=== PATIENT | female | born 1995 | race Caucasian/White ===

== ENCOUNTER 2022-01-12 04:31 | Inpatient (IN) ==
[2022-01-12] MEDS ORDERED: Famotidine 20 MG/2 ML VIAL IVP PRN (05:11)
[2022-01-12] MEDS ORDERED: Metoclopramide 10 MG/2 ML VIAL IVP PRN (05:11)
[2022-01-12] MEDS ORDERED: Naloxone 0.4 MG/ML INJ IVP PRN (05:11)
[2022-01-12] MEDS ORDERED: miSOPROStoL 25 MCG TABLET PO PRN (05:33)
[2022-01-12 05:46] LABS: Basophils # 0.1 K/mcL (0.0-0.2); Basophils % 0.5 %; Eosinophils # 0.1 K/mcL (0.0-0.6); Eosinophils % 1.4 %; Hematocrit 33.6 % (35.3-44.9); Immature Granulocytes % 0.5 % (0-4); Lymphocytes # 0.9 K/mcL (0.6-4.6); Lymphocytes % 8.9 %; Mean Corpuscular HGB Conc 32.7 g/dL (31.6-35.5); Mean Corpuscular Hemoglobin 27.6 pg (28.0-33.3); Mean Corpuscular Volume 84.2 fL (83.0-100.0); Mean Platelet Volume 10.7 fL (9.4-12.4); Monocytes # 0.9 K/mcL (0.0-1.3); Monocytes % 9.6 %; Neutrophils # 7.7 K/mcL (1.6-8.9); Platelet Count 297 K/mcL (140-400); Red Blood Count 3.99 M/mcL (3.82-4.97); Red Cell Distribution Width 13.6 % (11.5-14.5); Segmented Neutrophils % 79.1 %; White Blood Count 9.7 K/mcL (4.3-11.1)
[2022-01-12 05:55] LABS: Amphetamine Screen,Urine Negative ng/mL (Cutoff=1000); Barbiturate Screen,Urine Negative ng/mL (Cutoff=200); Benzodiazepines Screen,Urine Negative ng/mL (Cutoff=200); Cannabinoid Screen,Urine Negative ng/mL (Cutoff = 50); Cocaine Screen,Urine Negative ng/mL (Cutoff= 300); Opiate Screen,Urine Negative ng/mL (Cutoff=300); Phencyclidine Screen,Urine Negative ng/mL (Cutoff=25)
[2022-01-12] MEDS ORDERED: EPHEDrine sulfate 50 MG/10 ML VIAL IVP PRN (07:00)
[2022-01-12] MEDS ORDERED: *HR* Nalbuphine 10 MG/ML AMPUL IV PRN (09:28)
[2022-01-12] MEDS ORDERED: Oxytocin 30 UNIT/503 ML BAG IVC SCH (10:15)
[2022-01-12] MEDS: Ringers Solution, Lactated 1,000 ML IVC SCH ×2 (10:35→14:38)
[2022-01-12] MEDS: Epidural Premix (fent/bupiv) 110 ML EP SCH ×2 (11:40→18:11)
[2022-01-12] MEDS ORDERED: Ondansetron 4 MG/2 ML VIAL IVP PRN (16:16)
[2022-01-12] MEDS ORDERED: *HR* FentaNYL (PF) 100 MCG/2 ML VIAL ONE (23:42)
[2022-01-13] MEDS: Epidural Premix (fent/bupiv) 110 ML EP SCH (01:13)
[2022-01-13] MEDS ORDERED: *HR* FentaNYL (PF) 100 MCG/2 ML VIAL ONE ×2 (02:05→06:29)
[2022-01-13] MEDS ORDERED: Ketamine *HR* 500 MG/10 ML MDV ONE (06:29)
[2022-01-13] MEDS ORDERED: *HR* Midazolam HCl 2 MG/2 ML VIAL ONE (06:29)
[2022-01-13] MEDS ORDERED: Ondansetron 4 MG/2 ML VIAL ONE (06:31)
[2022-01-13] MEDS ORDERED: ceFAZolin 3,000 MG in Water for inj. (sterile) 30 ML IVP ONE (06:31)
[2022-01-13] MEDS ORDERED: Chloroprocaine 3%/PF 20 ML VIAL INFILT ONE (06:44)
[2022-01-13] MEDS ORDERED: *HR* Oxytocin 10 UNIT/ML VIAL ONE (07:12)
[2022-01-13] MEDS ORDERED: CeFAZolin Syr 3,000MG/30 ML 3,000 MG/30 ML SYRINGE IVPB ONE (08:00)
[2022-01-13] MEDS ORDERED: Ondansetron ODT 4 MG TAB.RAPDIS SL PRN (10:19)
[2022-01-13] MEDS ORDERED: Prenatal Vit/FA 1 EACH TABLET PO SCH (10:19)
[2022-01-13] MEDS ORDERED: Oxytocin 30 UNIT/503 ML BAG IVC SCH (10:19)
[2022-01-13] MEDS ORDERED: Lanolin 7 G OINT...G. TP PRN (10:19)
[2022-01-13] MEDS ORDERED: Acetaminophen 325 MG TABLET PO SCH (10:19)
[2022-01-13] MEDS ORDERED: Benzocaine/Menthol 56 GM AEROSOL SPRAY TP PRN (10:19)
[2022-01-13] MEDS ORDERED: OXYTOCIN/RINGERS LACTATE 10 UNIT/166.6 ML BAG IVC ONE (10:19)
[2022-01-13] MEDS ORDERED: Ibuprofen 600 MG TABLET PO SCH (10:36)
[2022-01-13 11:24] VITALS: O2SAT 97
[2022-01-13 15:33] VITALS: BP 122/80; PULSE 96; TEMP 98.7
[2022-01-13 16:51] LABS: Basophils % 0.3 %; Eosinophils % 0.3 %; Hematocrit 32.3 % (35.3-44.9); Hemoglobin 10.5 g/dL (11.5-15.4); Immature Granulocytes % 0.5 % (0-4); Mean Corpuscular HGB Conc 32.5 g/dL (31.6-35.5); Mean Corpuscular Hemoglobin 27.1 pg (28.0-33.3); Mean Corpuscular Volume 83.5 fL (83.0-100.0); Mean Platelet Volume 10.4 fL (9.4-12.4); Monocytes # 1.2 K/mcL (0.0-1.3); Monocytes % 7.8 %; Platelet Count 277 K/mcL (140-400); Red Blood Count 3.87 M/mcL (3.82-4.97); Red Cell Distribution Width 13.8 % (11.5-14.5); Segmented Neutrophils % 86.1 %
[2022-01-13 16:55] LABS: Lymphocytes # 0.8 K/mcL (0.6-4.6); Neutrophils # 12.8 K/mcL (1.6-8.9); White Blood Count 14.9 K/mcL (4.3-11.1)
== END 2022-01-13 18:30 | disposition home or self-care (01) | DRG 560 ==
LOC: 1NENULAB 04:31 → 1NENUOBS 01-13 10:17
PROVIDERS: ADMIT Obstetrics & Gynecology; ATTEND Obstetrics & Gynecology